=== PATIENT | male | born 1985 ===

== ENCOUNTER 2016-08-02 10:33 | Inpatient (IN) | payer MEDICAID ==
[2016-08-02 10:43] VITALS: BMI 26.6
--- NOTE | 2016-08-02 10:57 | ED PDOC ---
Arrival/HPI - General Chief Complaint: Psychiatric Evaluation Time Seen by Provider: 08/02/16 10:53 Historian: Patient, EMS - History of Present Illness Associated Symptoms (Text): 08/02/16 10:55 Patient was medically cleared at another hospital for psychiatric admission and transferred here for psychiatric bed. Therefore, no additional history or physical exam is necessary. He is being admitted to the psychiatric floor for depression and a suicide attempt by hanging. He had a CT scan of the cervical spine which showed no fracture and a CT scan of the head which was normal. Past Medical History - Psychiatric Hx Substance Use: No (unable to obtain) Family/Social History Family/Social History: Unknown Family HX Smoking Status: Unknown If Ever Smoked Hx Alcohol Use: Yes (reported) Hx Substance Use: No (unable to obtain) Allergies/Home Meds Allergies/Adverse Reactions: Allergies No Known Allergies Allergy (Verified 08/02/16 10:43) Home Medications: Home Meds Medication Instructions Recorded Confirmed Unobtainable 08/02/16 08/02/16 Physical Exam Vital Signs Temp Pulse Resp BP Pulse Ox 08/02/16 10:43 97.9 F 80 16 109/70 95 Disposition/Present on Arrival - Present on Arrival Any Indicators Present on Arrival: No History of DVT/PE: No History of Uncontrolled Diabetes: No Urinary Catheter: No History of Decub. Ulcer: No History Surgical Site Infection Following: None - Disposition Have Diagnosis and Disposition been Completed?: Yes Diagnosis: Depression, Suicide attempt Disposition: HOSPITALIZED Disposition Time: 10:57 Patient Plan: Admission Condition: GOOD
[2016-08-02] MEDS ORDERED: Alum-Mag Hydrox-Simethicone Susp (30 mL) PO PRN (12:53)
[2016-08-02] MEDS ORDERED: Magnesium Hydroxide Susp 30 ml UD PO PRN (12:53)
[2016-08-02] MEDS: Multivitamin Therapeutic Tab PO SCH (14:44)
--- NOTE | 2016-08-02 17:11 | CP.PCM.CON ---
History of Present Illness - History of Present Illness History of Present Illness: routine medical evaluaton. Patient seen and examined in room 513. Patient is alert, awake and oriented. Currently denies any fevers, chills.denies any chest pain, shortness of breath. denies any headache or neck pain. denies any abdominal pain, nausea, vomiting. Denies any urinary, bowel symptoms. Tolerating diet well. Ambulating fine. patient was initially sent to [facility] emergency room after he was trying to hang himself yesterday night. Patient's mother helped him and called 911. In the [facility] ER patient had CT head and cervical spine done which was normal. Lab work was normal. Patient was transferred to [place] psychiatric floor for further treatment. Patient with a history of chronic smoking, alcohol abuse. Patient also gives history of mild stroke with left-sided weakness 3 weeks ago. He was admitted at [facility] for treatment. Released after a few days. Patient is currently not taking any medications. he was prescribed aspirin alone. No focal deficit noted at the time of discharge. Patient denies any previous psychiatric disorder. Denies any psychiatric admission. Denies any history of depression. Past medical history; Questionable TIA/ CVA active smoking Alcohol abuse medications at home; None Social history; Smokes 4 cigarettes per day Drinks alcohol frequently. Last drink was last night before admission. denies any drug abuse Past surgical history; None Family history; Not significant Patient currently lives with his girlfriend in [facility]. Review of Systems - Constitutional Constitutional: absent: Chills - EENT Eyes: absent: Blurred Vision Nose/Mouth/Throat: absent: Nasal Congestion - Cardiovascular Cardiovascular: absent: Chest Pain, Chest Pain at Rest - Respiratory Respiratory: absent: Cough, Dyspnea, Dyspnea on Exertion - Gastrointestinal Gastrointestinal: absent: Abdominal Pain - Musculoskeletal Musculoskeletal: absent: Abnormal Gait, Numbness - Neurological Neurological: absent: Abnormal Gait, Confusion, Focal Weakness, Weakness - Psychiatric Psychiatric: Depression. absent: Anxiety - Hematologic/Lymphatic Hematologic: absent: Easy Bleeding, Easy Bruising Past Patient History - Past Social History Smoking Status: Unknown If Ever Smoked Alcohol: < 2 Drinks/Day Drugs: Denies Home Situation {Lives}: With Family - NEUROLOGICAL HX Cerebrovascular Accident: Yes - PSYCHIATRIC Hx Substance Use: Yes - SURGICAL HISTORY Hx Surgeries: (unable to obtain) Meds Allergies/Adverse Reactions: Allergies Allergy/AdvReac Type Severity Reaction Status Date / Time No Known Allergies Allergy Verified 08/02/16 10:43 - Medications Medications: Current Medications Acetaminophen (Tylenol 325mg Tab) 650 mg PO Q6 PRN PRN Reason: Pain, Mild (1-3) Last Admin: 08/02/16 14:30 Dose: 650 mg Al Hydrox/Mg Hydrox/Simethicone (Maalox Plus 30 Ml) 30 ml PO DAILY PRN PRN Reason: Upset Stomach Citalopram Hydrobromide (Celexa) 10 mg PO DAILY [facility] Last Admin: 08/02/16 14:45 Dose: Not Given Folic Acid (Folic Acid) 1 mg PO DAILY [facility] Last Admin: 08/02/16 14:44 Dose: 1 mg Lorazepam (Ativan) 2 mg PO Q6 [facility] PRN Reason: Protocol Magnesium Hydroxide (Milk Of Magnesia) 30 ml PO DAILY PRN PRN Reason: Constipation Multivitamins (Thera Tab) 1 tab PO DAILY [facility] Last Admin: 08/02/16 14:44 Dose: 1 tab Thiamine HCl (Vitamin B1 Tab) 100 mg PO DAILY [facility] Last Admin: 08/02/16 14:44 Dose: 100 mg Zaleplon (Sonata) 10 mg PO HS PRN PRN Reason: Insomnia Physical Exam - Constitutional Appears: Well, Non-toxic - Head Exam Head Exam: NORMAL INSPECTION - Eye Exam Eye Exam: Normal appearance - ENT Exam ENT Exam: Mucous Membranes Moist - Respiratory Exam Respiratory Exam: NORMAL BREATHING PATTERN - Cardiovascular Exam Cardiovascular Exam: REGULAR RHYTHM - GI/Abdominal Exam GI & Abdominal Exam: Normal Bowel Sounds, Soft. absent: Rigid, Tenderness - Extremities Exam Extremities exam: Negative for: pedal edema - Back Exam Back exam: absent: CVA tenderness (L), CVA tenderness (R) - Neurological Exam Neurological exam: Alert, Oriented x3 - Psychiatric Exam Psychiatric exam: Depressed, Flat Affect - Skin Skin Exam: Normal Color Results - Vital Signs Recent Vital Signs: Last Vital Signs Temp 97.9 F 08/02/16 10:43 Pulse 80 08/02/16 10:43 Resp 16 08/02/16 10:43 BP 109/70 08/02/16 10:43 Pulse Ox 95 08/02/16 10:43 Assessment & Plan - Assessment and Plan (Free Text) Plan: 1.Patient is a 31-year-old male admitted with alcohol abuse and suicidal ideation. Continue to monitor closely in the psychiatric floor. 2. Chronic alcohol abuse; not in any withdrawal. Continue Ativan. Continue multivitamin, thiamine, folic acid. Complete alcohol cessation is strongly advised. criminal justice social worker evaluation advised to refer to AA rehabilitation/AA meetings. 3. Active smoking; smoking cessation is strongly advised. patient refused NicoDerm patch. 4.GI prophylaxis with Pepcid. 5.questionable history CVA; currently no deficit. get medical records from [facility] for confirmation. CT head/CT cervical spine done at [facility] was normal. Labs done at [facility] reviewed. CBC, CMP, UDS, UA, chest x-ray normal. Patient is clinically stable. Please reconsult As needed. thank you for the courtesy of this consultation.
[2016-08-03 07:36] VITALS: RESP 20; TEMP 97.4
[2016-08-03 08:53] LABS: CHOLESTEROL 162 mg/dL (130-200); GLUCOSE,FASTING 93 mg/dL (65-110)
[2016-08-03] MEDS: Multivitamin Therapeutic Tab PO SCH (08:58)
[2016-08-03 09:13] LABS: FREE T4 0.68 ng/dL (0.78-2.19)
[2016-08-03 09:27] LABS: THYROID STIMULATING HORMONE 1.23 mIU/mL (0.46-4.68)
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
--- NOTE | 2016-08-03 20:17 | CARD ---
APPROVED REPORT EKG Measurement Heart [id number] <Conclusion> Normal sinus rhythm Incomplete right bundle branch block Left anterior fascicular block Abnormal ECG
[2016-08-04 06:48] VITALS: BP 110/64; PULSE 58
[2016-08-04] MEDS: Multivitamin Therapeutic Tab PO SCH (08:20)
[2016-08-04 09:56] VITALS: O2SAT 95
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
== END 2016-08-04 10:35 | disposition left against medical advice (07) | DRG 427 ==
LOC: ED 10:33 → MERGE 11:19 → ERH 11:19 → PSYC 11:32
PROVIDERS: ADMIT Psychologist; ATTEND Psychiatry & Neurology Psychiatry
PROC: GZ3ZZZZ Medication Management (ICD-10-PCS; principal; 2016-08-03)
DX: F43.23 Adjustment disorder with mixed anxiety and depressed mood (principal); F10.129 Alcohol abuse with intoxication, unspecified; F15.10 Other stimulant abuse, uncomplicated; F14.10 Cocaine abuse, uncomplicated; I69.354 Hemiplegia and hemiparesis following cerebral infarction affecting left non-dominant side; F17.210 Nicotine dependence, cigarettes, uncomplicated